=== PATIENT | male | born 1945 ===

== ENCOUNTER 2021-05-26 08:59 | Emergency (ER) | payer OTHER, MEDICARE ==
[~2021-05-26] VITALS: Ht 175.3 cm; Wt 81.7 kg
[~2021-05-26 08:59] MED LIST: ALBU90OI INH; AMLO5; AMLO5 PO; ASPI81CH PO; ATOR20 PO; CARV6.25; CARV6.25 PO; CHOL10002 PO; HYDCHL25 PO; Humulin N100 UNIT/1 SC; Hydrocodone-Ap1 EA20 PO; INSULANPEN; LOSARTAN POTAS100 MG PO; METF500C PO; SILD50TA; Viagra100 MG PO; XARELTO20 MG PO
== END 2021-05-26 10:40 | disposition home or self-care (01) ==
LOC: ER 08:59
DX: S61.012A Laceration without foreign body of left thumb without damage to nail, initial encounter (principal); I10 Essential (primary) hypertension; E11.9 Type 2 diabetes mellitus without complications; Z79.899 Other long term (current) drug therapy; Z79.01 Long term (current) use of anticoagulants; Z79.82 Long term (current) use of aspirin; W27.0XXA Contact with workbench tool, initial encounter
CPT/HCPCS: 99282-25

== ENCOUNTER 2024-10-17 15:26 | Emergency (ER) | payer SELFPAY ==
[~2024-10-17] VITALS: Ht 167.6 cm; Wt 78.5 kg
[2024-10-17 16:05] LABS: BASOPHILS ABSOLUTE AUTO 0.03 K/mm3 (0.00-0.23); BASOPHILS PERCENT AUTO 1 % (0-2); EOSINOPHILS ABSOLUTE AUTO 0.08 K/mm3 (0.00-0.68); EOSINOPHILS PERCENT AUTO 1 % (0-6); Hematocrit 35.5 % (37.0-53.0); Hemoglobin 11.6 g/dL (13.5-17.5); IMMATURE GRAN ABSOLUTE AUTO 0.02 K/mm3 (0.00-0.10); IMMATURE GRAN PERCENT AUTO 0 % (0-1); LYMPHOCYTES PERCENT AUTO 17 % (21-46); MONOCYTES ABSOLUTE AUTO 0.54 K/mm3 (0.16-1.47); MONOCYTES PERCENT AUTO 8 % (4-13); Mean Corpuscular HGB 29.1 pg (26.0-34.0); Mean Corpuscular HGB Conc 32.7 g/dL (31.5-36.5); Mean Corpuscular Volume 89 fL (80-100); NEUTROPHILS ABSOLUTE AUTO 4.73 K/mm3 (1.96-9.15); NEUTROPHILS PERCENT AUTO 73 % (41-73); Platelet Count 136 K/mm3 (150-400); RDW Coefficient Variation 15.3 % (11.7-14.2); RDW Standard Deviation 50.4 fL (35.1-46.3); Red Blood Cell Count 3.99 M/mm3 (4.30-5.90)
[2024-10-17 16:29] LABS: Albumin/Globulin Ratio 1.1 (0.8-1.8); Bilirubin, Total 1.2 mg/dL (0.1-1.0); Bun/Creatinine Ratio 18.3 (12.0-20.0); Calcium, Blood 9.2 mg/dL (8.5-10.1); Creatinine, Blood 0.71 mg/dL (0.60-1.20); Globulin, Blood 3.8 g/dL (2.2-4.0); Potassium, Blood 3.7 mmol/L (3.5-5.5); Total Protein, Blood 7.8 g/dL (6.4-8.2)
[2024-10-17 19:04] VITALS: BP 147/75
== END 2024-10-17 19:22 | disposition home or self-care (01) ==
LOC: ER 15:26
PROVIDERS: Emergency Medicine
DX: S06.0X0A Concussion without loss of consciousness, initial encounter (principal); W10.8XXA Fall (on) (from) other stairs and steps, initial encounter; E11.9 Type 2 diabetes mellitus without complications; I10 Essential (primary) hypertension; I25.10 Atherosclerotic heart disease of native coronary artery without angina pectoris; Z79.82 Long term (current) use of aspirin; Z79.84 Long term (current) use of oral hypoglycemic drugs; Z79.01 Long term (current) use of anticoagulants; Z79.899 Other long term (current) drug therapy
CPT/HCPCS: 70450; 71046; 72125; 80053; 83880; 84484; 85025; 93005; 93010; 99284-25